=== PATIENT | male | born 1965 | race Caucasian/White ===

== ENCOUNTER 2017-01-18 08:19 | Emergency (ER) | payer OTHER ==
[~2017-01-18] VITALS: Ht 185.4 cm; Wt 92.0 kg
[~2017-01-18 08:19] MED LIST: CEPH-443 PO; DIAZ10TA4 PO; METH10TA2 PO; METH54TA9 PO
[2017-01-18 08:26] VITALS: Ht 185.4 cm; Wt 92.0 kg
[2017-01-18] MEDS ORDERED: LIDOCAINE 2%/EPI MPF (SDV) 20 ML VIAL INJ ONE (09:00)
[2017-01-18] MEDS ORDERED: TRIMETHOPRIM/SULFAMETHOX (DS) TAB PO ONE (09:00)
[2017-01-18] MEDS ORDERED: NICARDipine HCL 30 MG CAPSULE PO ONE (09:00)
[2017-01-18] MEDS ORDERED: CEPHALEXIN 500 MG CAP PO ONE (09:00)
[2017-01-18] MEDS ORDERED: SULF1TAB31 PO (09:24)
[2017-01-18] MEDS ORDERED: CEPH-443 PO (09:24)
[2017-01-18] MEDS ORDERED: LIDOCAINE 1% (MDV) 20 ML INJ SC ONE (09:30)
[2017-01-18 09:34] VITALS: BP 167/94
--- NOTE | 2017-01-18 13:07 | ERD ---
ER Documentation Chief Complaint Date/Time DATE: 01/18/17 TIME: 13:05 Chief Complaint Complains of an abscess to left forearm above the wrist HPI Patient is a 51-year-old male with hypertension and drug use who presents with an abscess to his left forearm. He said that he injected methamphetamine 2 weeks ago in this area. He denies fevers. He has had no treatment as of yet. The swelling has gotten worse and it is painful. He is currently not taking his blood pressure medicines daily. Upon review of old medical records the patient has multiple visits to the ER for various complaints. Review of the emergency department information exchange system shows visits to other emergency departments as well. He does not remember the name of his primary doctor. ROS All systems reviewed and are negative except as per history of present illness. Medications Home Meds Active Scripts Cephalexin* (Keflex*) 500 Mg Capsule, 500 MG PO QID for 7 Days, CAP Prov:KEITH BARTHOLOMEW MD 01/18/17 Sulfamethoxazole/Trimethoprim* (Bactrim Ds* Tablet) 1 Each Tablet, 1 TAB PO BID , #14 TAB Prov:KEITH BARTHOLOMEW MD 01/18/17 Cephalexin* (Keflex*) 500 Mg Capsule, 500 MG PO QID for 5 Days, CAP Prov:AMANDA RICO 08/26/15 Reported Medications Diazepam* (Diazepam*) 10 Mg Tablet, 10 MG PO BID, TAB 08/26/15 Methadone Hcl* (Methadone*) 10 Mg Tab, 76 MG PO DAILY, TAB 08/26/15 Methylphenidate Hcl* (Methylphenidate Hcl ER*) 54 Mg Tab.er.24, 37.5 MG PO AM, TAB 12/04/14 Allergies Allergies: Coded Allergies: No Known Allergy (Verified , 08/26/15) PMhx/Soc History of Surgery: Yes (LEFT HAND SURGERY) Anesthesia Reaction: No Hx Neurological Disorder: No Hx Respiratory Disorders: No Hx Cardiac Disorders: No Hx Psychiatric Problems: No Hx Miscellaneous Medical Probl: Yes (HEROIN ABUSE) Hx Alcohol Use: Yes Hx Substance Use: Yes ( METHADONE THERAPY) Hx Tobacco Use: Yes (2-3 CIGARETTES PER DAY) Smoking Status: Current every day smoker FmHx Family History: diabetes Physical Exam Vitals Vital Signs Date Time Temp Pulse Resp B/P Pulse Ox O2 Delivery O2 Flow Rate FiO2 01/18/17 09:34 167/94 01/18/17 08:26 97.1 93 20 241/134 98 Physical Exam Const: Moderate distress secondary to pain Head: Atraumatic Eyes: Normal Conjunctiva ENT: Normal External Ears, Nose and Mouth. Neck: Full range of motion..~ No meningismus. Resp: Clear to auscultation bilaterally Cardio: Regular rate and rhythm, no murmurs Abd: Soft, non tender, non distended. Normal bowel sounds Skin: 3 x 3 cm abscess to left forearm with fluctuance Back: No midline or flank tenderness Ext: No cyanosis, or edema Neur: Awake and alert Psych: Normal Mood and Affect Results 24 hrs Current Medications Medications (Trade) Dose Ordered Sig/Jame Route PRN Reason Start Time Stop Time Status Last Admin Dose Admin Nicardipine HCl (Cardene) 30 mg ONCE ONCE PO 01/18/17 09:00 01/18/17 09:01 DC 01/18/17 08:57 Trimethoprim/ Sulfamethoxazole (Bactrim (Ds)) 1 tab ONCE ONCE PO 01/18/17 09:00 01/18/17 09:01 DC 01/18/17 08:58 Cephalexin (Keflex) 500 mg ONCE ONCE PO 01/18/17 09:00 01/18/17 09:01 DC 01/18/17 08:58 Lidocaine/ Epinephrine (Xylocaine 2%/ Epi Mpf(Sdv)) 20 ml ONCE ONCE INJ 01/18/17 09:00 01/18/17 09:03 DC Lidocaine (Xylocaine 1% (Mdv) 20 ml) 20 ml ONCE ONCE SC 01/18/17 09:30 01/18/17 09:31 DC 01/18/17 09:12 Procedures/MDM Abscess Incision and Drainage with irrigation by me: Location: Left forearm Anesthesia: Lidocaine without epinephrine Technique: [Irrigated. Disrupted loculations w/ instrumentation ] Packing: [None] Complications: [Neurovascularly intact post procedure] 48 hour wound check. Scar minimization instructions given. Patient's skin symptoms have stabilized while they have been evaluated in the department and are appropriate for outpatient care and work up. Exam and w/u not consistent w/ sepsis, deep space infection, or foreign body. Smoking Cessation Therapy: Pt. was lectured for greater than 3 minutes on the health risks of continued smoking and the benefits of cessation. Patient also had hypertension and was given Cardene by mouth. I told him he will need to take his blood pressure medicines as directed. He can return for any worsening symptoms. He should follow-up with the primary doctor within 48 hours for wound check. Departure Diagnosis: Primary Impression: Abscess Additional Impression: Hypertension Hypertension type: essential hypertension Qualified Code: I10 - Essential hypertension Condition: Fair Patient Instructions: Abscess, Incision And Drainage Referrals: ALIZA BLANCO (PCP) Additional Instructions: Call your primary care doctor TOMORROW for an appointment during the next 1-2 days.See the doctor sooner or return here if your condition worsens before your appointment time. KEITH BARTHOLOMEW MD Jan 18, 2017 13:07
== END 2017-01-18 09:50 | disposition home or self-care (01) ==
LOC: E/R 08:19
DX: L02.414 Cutaneous abscess of left upper limb (principal); F17.210 Nicotine dependence, cigarettes, uncomplicated; I10 Essential (primary) hypertension
CPT/HCPCS: 10060; Z7610